=== PATIENT | male | born 1995 | race Caucasian/White ===

== ENCOUNTER 2022-09-18 20:24 | Outpatient (CLI) | payer OTHER | END 2022-09-18 23:59 | disposition short-term general hospital (02) | LOC: EMS 20:24 | DX: S06.9X9A Unspecified intracranial injury with loss of consciousness of unspecified duration, initial encounter (principal); R09.89 Other specified symptoms and signs involving the circulatory and respiratory systems; S01.81XA Laceration without foreign body of other part of head, initial encounter; S89.92XA Unspecified injury of left lower leg, initial encounter; V53.5XXA Driver of pick-up truck or van injured in collision with car, pick-up truck or van in traffic accident, initial encounter; Y92.413 State road as the place of occurrence of the external cause | CPT/HCPCS: A0425; A0427 ==